=== PATIENT | male | born 1985 | race Caucasian/White ===

== ENCOUNTER 2016-03-29 13:28 | Emergency (ER) | payer SELFPAY ==
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
[2016-03-29] MEDS ORDERED: OXYCODONE-ACETAMINOPHEN 5-325 MG TABLET PO ONE (15:40)
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
[2016-03-29 17:12] VITALS: BP 125/87
== END 2016-03-29 17:12 | disposition home or self-care (01) ==
LOC: ER 13:28
DX: J32.0 Chronic maxillary sinusitis (principal); J01.30 Acute sphenoidal sinusitis, unspecified; H92.02 Otalgia, left ear; R09.81 Nasal congestion; M54.5 Low back pain; R05 Cough
CPT/HCPCS: 70486; 99283

== ENCOUNTER 2018-04-02 18:25 | Emergency (ER) | payer SELFPAY ==
[2018-04-02] MEDS ORDERED: KETOROLAC TROMETHAMINE 60 MG/2 ML SDV IM ONE (18:46)
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
[2018-04-02 19:53] VITALS: BP 109/77
== END 2018-04-02 19:53 | disposition home or self-care (01) ==
LOC: ER 18:25
DX: M54.5 Low back pain (principal); M54.6 Pain in thoracic spine; F17.200 Nicotine dependence, unspecified, uncomplicated; Z87.820 Personal history of traumatic brain injury
CPT/HCPCS: 99283; 72110; 72070; J1885

== ENCOUNTER 2019-08-22 12:16 | Emergency (ER) | payer SELFPAY ==
[2019-08-22] MEDS ORDERED: MORPHINE SULFATE 10 MG/ML INJ IM ONE (12:38)
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
--- NOTE | 2019-08-22 13:35 | RADIOLOGY REPORT (SQ) ---
EXAM DESCRIPTION: FOREARM RIGHT IMAGES COMPLETED DATE/TIME: 08/22/2019 1:02 pm REASON FOR STUDY: laceration by metal, eval for FB COMPARISON: None. NUMBER OF VIEWS: Two views. TECHNIQUE: Two radiographic images acquired of the right forearm, including elbow and wrist in at le ast one projection. LIMITATIONS: None. FINDINGS: MINERALIZATION: Normal. BONES: No acute fracture. No worrisome bone lesions. SOFT TISSUES: No obvious swelling or foreign body. OTHER: No other significant finding. IMPRESSION: No fracture or dislocation. Specifically no radiopaque foreign bodies are identified. TECHNICAL DOCUMENTATION: JOB ID: [id number] 2010 [email or web address]- All Rights Reserved Reading location - IP/workstation name: [email or web address]
[2019-08-22] MEDS ORDERED: LIDOCAINE 1%/EPINEPHRINE INJ 20 ML VIAL INJ ONE (13:50)
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
[2019-08-22] MEDS ORDERED: DIPH/PERTUSS(ACELL)/TETANUS VAC/PF 0.5 ML SYR (>=10YO) IM ONE (15:19)
[2019-08-22 15:53] VITALS: BP 133/75
== END 2019-08-22 15:42 | disposition home or self-care (01) ==
LOC: ER 12:16
PROC: 0HQDXZZ Repair Right Lower Arm Skin, External Approach (ICD-10-PCS; principal; 2019-08-22)
DX: S51.811A Laceration without foreign body of right forearm, initial encounter (principal); M79.601 Pain in right arm; W45.8XXA Other foreign body or object entering through skin, initial encounter; F17.200 Nicotine dependence, unspecified, uncomplicated; J45.909 Unspecified asthma, uncomplicated
CPT/HCPCS: 99283; 96372; 90471; 73090; 90715; 12002; J3490; J2270